=== PATIENT | female | born 1975 ===

== ENCOUNTER 2023-06-16 06:00 | Outpatient (CLI) | payer OTHER | END 2023-06-16 06:05 | disposition home or self-care (01) | LOC: LAB 06:00 → ADM 07:45 → CIR.AMB 06-23 07:00 → EDSTATUS 06-23 11:15 → CIR.AMB 06-23 11:15 | PROVIDERS: ATTEND Otolaryngology Otology & Neurotology | DX: J38.1 Polyp of vocal cord and larynx (principal); R49.0 Dysphonia ==